=== PATIENT | male | born 1955 | race Two or more races ===

== ENCOUNTER 2017-08-07 23:25 | Inpatient (IN) | payer MEDICAID, OTHER ==
[~2017-08-07] VITALS: Ht 182.9 cm; Wt 103.9 kg
--- NOTE | 2017-08-08 03:27 | NUR ---
Called to rm pt in restroom.
[2017-08-08] MEDS ORDERED: IV NS 0.9% 1,000 ML BAG IV ONE (05:30)
[2017-08-08] MEDS ORDERED: PIPERACILLIN /TAZOBACTAM 3.375 G in IV D5W 50 ML IV ONE (05:30)
[2017-08-08] MEDS ORDERED: VANCOMYCIN 1 GM in IV D5W 250 ML IV ONE (05:30)
--- NOTE | 2017-08-08 05:42 | NUR ---
62Y/O MALE PLACED IN BED 1 C/O LOWER EXTREMITY INJURY. PT SEEN BY . ORDERS WRITTEN
[2017-08-08 06:01] LABS: HEMATOCRIT 34 % (39-51); HEMOGLOBIN 11.9 g/dL (13.5-17.5); LYMPHOCYTES # (AUTO) 0.8 /CMM (0.8-4.8); LYMPHOCYTES % (AUTO) 1.6 % (20.0-44.0); MEAN CORPUSCULAR HEMOGLOBIN 31 PG (26.0-33.0); MEAN CORPUSCULAR HGB CONC 35 g/dl (31.0-36.0); MEAN CORPUSCULAR VOLUME 89 fL (80-96); MONOCYTES # (AUTO) 0.1 /CMM (0.1-1.30); MONOCYTES % (AUTO) 0.2 % (2.0-12.0); NEUTROPHILS # (AUTO) 46.2 /CMM (1.8-8.9); NEUTROPHILS % (AUTO) 98.2 % (43.0-81.0); PLATELET COUNT (AUTO) 544 /CMM (150-450); RDW COEFFICIENT OF VARIATION 12.8 (11.5-15.0); RED BLOOD CELL COUNT(AUTO) 3.86 MIL/uL (4.5-6.0)
[2017-08-08 06:15] LABS: INR 0.94 (0.87-1.13)
[2017-08-08] MEDS ORDERED: PIPERACILLIN /TAZOBACTAM 3.375 G VIAL IV ONE (06:18)
[2017-08-08 06:25] LABS: TROPONIN I < 0.017 ng/mL (0.00-0.056)
[2017-08-08 06:32] LABS: ALANINE AMINOTRANSFERASE 38 U/L (12-78); ALBUMIN 2.4 g/dL (3.4-5.0); ALKALINE PHOSPHATASE 104 U/L (46-116); ASPARTATE AMINOTRANSFERASE 40 U/L (15-37); B-TYPE NATRIURETIC PEPTIDE 2901 PG/ML (0-125); BILIRUBIN,DIRECT 0.2 mg/dL (0.0-0.2); BILIRUBIN,TOTAL 0.5 mg/dL (0.2-1.0); CALCIUM, SERUM 8.2 mg/dL (8.5-10.1); CARBON DIOXIDE 18 mmol/L (21-32); CHLORIDE 87 mmol/L (98-107); CREATININE 3.9 mg/dL (0.6-1.3); GLUCOSE 130 mg/dL (74-106); POTASSIUM 4.8 mmol/L (3.5-5.1); TOTAL PROTEIN, SERUM 7.4 g/dL (6.4-8.2)
--- NOTE | 2017-08-08 06:32 | NUR ---
PT SEEN BY . Harshil/Tiera PLACED AND IVF STARTED WITH PIGGY BACK OF ZOSYN. PT HAS VERY BAD VEINS. IV BLEW AND NEEDED TO BE REMOVED. RECOMMEND PICC LINE.
[2017-08-08 06:34] LABS: SODIUM SERUM 119 mmol/L (136-145)
[2017-08-08 06:35] LABS: UREA NITROGEN, BLOOD 88 mg/dL (7-18)
[2017-08-08 06:39] LABS: BAND % (MANUAL) 11 % (0.0-5.0); LYMPHOCYTES % (MANUAL) 3 % (16-48); MONOCYTES % (MANUAL) 1 % (0-11.0); NEUTROPHILS % (MANUAL) 85 (42-76)
--- NOTE | 2017-08-08 06:45 | NUR ---
DR. HERNANDEZ EVALUATED PT. REQUESTING PICC LINE PLACEMENT THIS AM. SHE ALSO REQUESTING WOUNDS TO BE CLEANED AND DRESSED. SPLINT BEHIND THE DRESSING OF THE LEFT LEG. PAIN MEDICATION WILL BE ORDERED FOR THE CLEANING OF THE WOUNDS.
[2017-08-08] MEDS ORDERED: KETOROLAC TROMETHAMINE INJ 60 MG/2 ML VIAL IM ONE (07:00)
[2017-08-08 08:00] VITALS: BP 142/81
[2017-08-08] MEDS ORDERED: KETOROLAC TROMETHAMINE INJ 30 MG/ML VIAL ONE (08:02)
[2017-08-08] MEDS ORDERED: AMLO5TAB2 PO (08:05)
[2017-08-08] MEDS ORDERED: CLON0.1T PO (08:05)
--- NOTE | 2017-08-08 08:38 | NUR ---
report given to onel méndez for josé
--- NOTE | 2017-08-08 08:41 | NUR ---
*picc line will be done inpatient and IV medication endorsed to telephone worker
[2017-08-08] MEDS ORDERED: IV NS 0.9% 1,000 ML IV PRN (08:46)
[2017-08-08 09:00] VITALS: BP 142/81
[2017-08-08] MEDS ORDERED: HYDROCODONE/APAP 5/325MG 1 EACH TABLET PO PRN (09:00)
[2017-08-08] MEDS ORDERED: ACETAMINOPHEN 325 MG TABLET PO PRN (09:00)
[2017-08-08] MEDS ORDERED: MAGNESIUM HYDROXIDE 30 ML UDC PO PRN (09:00)
[2017-08-08] MEDS ORDERED: Z GUARD REMEDY 2 OZ OINT TP PRN (09:00)
--- NOTE | 2017-08-08 09:00 | NUR ---
RECEIVED PATIENT FROM ER VIA [facility]. PATIENT A/OX3. DIAGNOSIS OF LLE WOUND/CELLULITIS. NO CUTE DISTRESS, NO SOB NOTED. DENIES PAIN OR DISCOMFORT. NO IV. MULTIPLE WOUNDS NOTED, PHOTOS TAKEN. ALL BELONGINGS PRESENT, CELLPHONE NOTED TO BE BROKEN PER PATIENT, CHECKLIST DONE. KEPT PATIENT CLEAN AND COMFORTABLE. BED IN LOCKED/LOW POSITION, SIDERAILS UPX2, CALL LIGHT IN REACH. WILL CONTINUE TO MONITOR ACCORDINGLY.
--- NOTE | 2017-08-08 09:05 | NUR ---
COSME NOTES PICC LINE INSERTED BY ICU NURSE. IV FLUIDS AND ANTIBIOTICS RUNNING. Addendum: 08/08/17 at 1129 by KAREL JENNINGS ANTIBIOTICS INFUSING.. Addendum: 08/08/17 at 1658 by KAREL JENNINGS CORRECTION: NOT PICC LINE.. MIDLINE WAS INSERTED ON MAHAMED # 20.
--- NOTE | 2017-08-08 09:10 | NUR ---
RN NOTES DR QUINONES ON BEDSIDE, WILL DO WOUND DEBRIDEMENT TOMORROW. PER DR QUINONES, PATIENT NPO AFTER MIDNIGHT.
[2017-08-08] MEDS ORDERED: FEE PK DOSING 1 MIN EA MC ONE (09:23)
--- NOTE | 2017-08-08 13:57 | NUR ---
Social service consult requested by DUSTIN Decker regarding homelessness. Pt. is a 62 year old male who was admitted to [facility] for cellulitis. Pt. is wheelchair bound. SW attempted to assess pt., however, pt. was asleep and had a difficult time waking up. SW to re-evaluate pt. tomorrow when pt. is more awake.
[2017-08-08 14:00] LABS: CALCIUM, SERUM 7.5 mg/dL (8.5-10.1); CREATININE 4.1 mg/dL (0.6-1.3); POTASSIUM 4.4 mmol/L (3.5-5.1)
[2017-08-08] MEDS ORDERED: DAKINS HALF STRENGTH (0.25%) 480 ML BOTTLE TOP SCH (14:00)
[2017-08-08] MEDS: PIPERACILLIN /TAZOBACTAM 3.375 G in IV D5W 50 ML IV SCH ×2 (14:04→17:38)
[2017-08-08 14:42] LABS: MAGNESIUM 1.8 mg/dL (1.8-2.4); PHOSPHORUS 4.2 mg/dL (2.5-4.9)
[2017-08-08 14:58] LABS: THYROID STIMULATING HORMONE 3.812 uIU/mL (0.358-3.74)
[2017-08-08 16:00] VITALS: BP 110/79
--- NOTE | 2017-08-08 17:30 | NUR ---
RN NOTES URINE COLLECTED
[2017-08-08] MEDS: DAKINS QUARTER STRENGTH (0.125%) 480 ML BOTTLE TOP SCH (17:39)
[2017-08-08] MEDS: IV NS 0.9% 1,000 ML IV PRN ×2 (17:40→20:41)
[2017-08-08 17:45] LABS: APPEARANCE,URINE CLEAR (CLEAR); BILIRUBIN,URINE NEGATIVE (NEGATIVE); BLOOD, URINE 3+ Ery/uL (NEGATIVE); COLOR,URINE DARK YELLO (YELLOW); KETONES,URINE NEGATIVE (NEGATIVE); LEUKOCYTE ESTERASE ,URINE NEGATIVE (NEGATIVE); NITRITE, URINE NEGATIVE (NEGATIVE); PH,URINE 5.5 (5.0-8.0); PROTEIN,URINE TRACE mg/dl (NEGATIVE); UGLUCOSE NEGATIVE (NEGATIVE); UROBILINOGEN,URINE 0.2 EU/dL (0.2)
[2017-08-08 17:48] LABS: BACTERIA,URINE Few /HPF (None Seen); RBC,URINE 21-50 /HPF (0-2); SQUAMOUS EPITHELIAL CELL,UR Few /HPF (None Seen)
[2017-08-08 17:55] LABS: URINE SODIUM, RANDOM 6 mmol/l (40-220)
[2017-08-08 18:36] LABS: OSMOLALITY,URINE 309 mOS/kg (340-1090)
[2017-08-08] MEDS: HYDROCODONE/APAP 10/325MG 1 EA TABLET PO PRN ×2 (19:02→21:16)
--- NOTE | 2017-08-08 19:33 | NUR ---
RN CLOSING NOTES PATIENT IN BED RESTING. NO ACUTE DISTRESS, NO SOB NOTED. ALL NEEDS ATTENDED AND PROVIDED. KEPT PATIENT SAFE AND COMFORTABLE IN BED. PATIENT SLEPT MOST OF THE DAY, PER PATIENT HE HASNT SLEEP FOR 4 DAYS. BED IN LOW/LOCKED POSITION, SIDERAILS UPX2. CALL LIGHT IN REACH. ENDORSED TO NIGHT RN FOR JERONIMO.
[2017-08-08 20:00] VITALS: BP 140/71
--- NOTE | 2017-08-08 20:23 | NUR ---
MS RN OPENING NOTES RECEIVED PT ALERT, AWAKE, VERBALLY RESPONSIVE. ON ROOM AIR, DENIES ANY PAIN OR DISCOMFORT AT THIS TIME. IV SITE INTACT, PATENT.KEPT CLEAN AND COMFPRTABLE. ATTENDED ALL NEEDS.
[2017-08-08] MEDS ORDERED: CLINDAMYCIN IV RTU IN D5W 900 MG/50 ML PIGGYBACK IV SCH (20:30)
--- NOTE | 2017-08-08 20:30 | NUR ---
MS RN NOTES RECEIVED CALL FROM LAB WITH RESULTS OF THE BLOOD CULTURE GRAM POSITIVE COCCI IN CHAINS IN AEROBIC BOTTLE. DR LECHUGA NOTIFIED WITH NO NEW ORDER RECEIVED AT THIS TIME. PT CURRENTLY ON MEREM, CLINDAMYCIN AND VANCOMYCIN. AFEBRILE. NO S/SX OF PAIN OR DISCOMFORT NOTED. WILL CONTINUE TO MONITOR.
[2017-08-08] MEDS: CLINDAMYCIN 900 MG in IV NS 0.9% 50 ML IV SCH (21:19)
[2017-08-08 22:00] VITALS: BP 140/71
[2017-08-08] MEDS: MEROPENEM 500 MG in IV NS 0.9% 50 ML IV SCH (22:04)
[2017-08-09] VITALS: BP 126/62
[2017-08-09 04:00] VITALS: BP 133/79
[2017-08-09] MEDS: CLINDAMYCIN 900 MG in IV NS 0.9% 50 ML IV SCH ×3 (06:01→20:06)
[2017-08-09] MEDS: IV NS 0.9% 1,000 ML IV PRN ×3 (06:02→21:41)
[2017-08-09] MEDS: ONDANSETRON HCL/PF 4 MG/2 ML VIAL IVP PRN ×2 (06:21→14:50)
[2017-08-09] MEDS: HYDROCODONE/APAP 10/325MG 1 EA TABLET PO PRN ×2 (06:21→14:51)
--- NOTE | 2017-08-09 07:00 | NUR ---
REVIVAL CLERK CLOSING NOTES PT IN BED, AWAKE, RESPONSIVE, ON ROOM AIR, RESPIRATIONS EVEN, UNLABORED. COMPLAINED OF NAUSEA ZOFRAN 4MG GIVEN ORDERED PRN.IV SITE INTACT, PATENT. KEPT CLEAN AND COMFORTABLE ATTENDED ALL NEEDS, CALL LIGHT WITHIN REACH. WILL CONTINUE TO MONITOR ACCORDINGLY.
--- NOTE | 2017-08-09 07:30 | NUR ---
FILM SOUND COORDINATOR NOTES PT IN BED, ASLEEP, EASY TO AROUSE, ALERT AND ORIENTED, STILL WITH COMPLAINT OF PAIN TO LLE, NOT IN DISTRESS, NO NAUSEA OR VOMITING NOTED, PLAN OF CARE DISCUSSED WITH PT, PT STATED THAT HE DOES NOT WANT TO HAVE THE WOUND DEBRIDEMENT TODAY BECAUSE HE IS NOT FEELING WELL, EXPLAINED RISKS AND BENEFITS, IV FLUIDS INFUSING WELL, CALL LIGHT WITHIN REACH.
[2017-08-09 08:00] VITALS: BP 122/76
[2017-08-09 08:29] LABS: EOSINOPHILS % (AUTO) 0.1 % (0.0-6.0); HEMATOCRIT 33 % (39-51); LYMPHOCYTES # (AUTO) 0.7 /CMM (0.8-4.8); LYMPHOCYTES % (AUTO) 1.9 % (20.0-44.0); MEAN CORPUSCULAR HEMOGLOBIN 30 PG (26.0-33.0); MEAN CORPUSCULAR HGB CONC 33 g/dl (31.0-36.0); MEAN CORPUSCULAR VOLUME 90 fL (80-96); MONOCYTES # (AUTO) 0.1 /CMM (0.1-1.30); MONOCYTES % (AUTO) 0.3 % (2.0-12.0); NEUTROPHILS # (AUTO) 38.7 /CMM (1.8-8.9); NEUTROPHILS % (AUTO) 97.7 % (43.0-81.0); PLATELET COUNT (AUTO) 441 /CMM (150-450); RDW COEFFICIENT OF VARIATION 13.3 (11.5-15.0)
[2017-08-09 08:33] LABS: WHITE BLOOD COUNT (AUTO) 39.7 K/uL (4.3-11.0)
[2017-08-09 08:53] LABS: ALBUMIN 1.7 g/dL (3.4-5.0); BILIRUBIN,TOTAL 0.3 mg/dL (0.2-1.0); CALCIUM, SERUM 7.4 mg/dL (8.5-10.1); CREATININE 3.3 mg/dL (0.6-1.3); MAGNESIUM 1.9 mg/dL (1.8-2.4); PHOSPHORUS 4.6 mg/dL (2.5-4.9); POTASSIUM 4.1 mmol/L (3.5-5.1); TOTAL PROTEIN, SERUM 6.1 g/dL (6.4-8.2)
[2017-08-09 08:57] LABS: THYROID STIMULATING HORMONE 3.225 uIU/mL (0.358-3.74)
[2017-08-09] MEDS: VANCOMYCIN 1 GM in IV D5W 250 ML IV SCH (09:02)
[2017-08-09] MEDS: DAKINS QUARTER STRENGTH (0.125%) 480 ML BOTTLE TOP SCH (09:03)
[2017-08-09 10:20] LABS: BAND % (MANUAL) 6 % (0.0-5.0); LYMPHOCYTES % (MANUAL) 3 % (16-48); MONOCYTES % (MANUAL) 4 % (0-11.0); NEUTROPHILS % (MANUAL) 87 (42-76)
--- NOTE | 2017-08-09 10:35 | NUR ---
CONTINUOUS IMPROVEMENT COACH NOTES PT REFUSING WOUND DEBRIDEMENT TODAY, SAID HE IS NOT FEELING WELL, DR. ZEENAT WAYNE, MD WILL SEE PT TODAY.
[2017-08-09] MEDS: SODIUM CHLORIDE 1000 MG TABLET.SOL PO SCH ×2 (10:48→16:20)
[2017-08-09] MEDS: MEROPENEM 500 MG in IV NS 0.9% 50 ML IV SCH ×2 (10:48→21:20)
--- NOTE | 2017-08-09 13:05 | NUR ---
RN MS NOTES PT IN BED, NO COMPLAINT AT THIS TIME, BREATHING PATTERN NORMAL, IV FLUIDS INFUSING WELL, DR. QUINONES MET WITH PT, DISCUSSED PLAN OF CARE, TOLERATING CURRENT DIET WELL, KEPT CLEAN, CALL LIGHT WITHIN REACH.
--- NOTE | 2017-08-09 14:00 | NUR ---
EMILIA and disease case manager Johnny met with pt. bedside. Pt. is alert and oriented x 3. Pt. appeared disheveled and had dirt under his finger nails. Pt. stated that he has been homeless for the past two months, ever since his hospitalization at [facility]. Pt. had been living on a friend's couch in [place]. Pt. is non-ambulatory and has a wheelchair. However, pt. is unable to move his wheelchair independently due to blisters on his finger tips. Pt. has history of drug use but states he does not use drugs anymore. However, pt's toxicology report shows positive for amphetamines and opiates. Pt. stated, he use to smoke marijuana but stopped smoking that as well. Pt. denies drinking alcohol. Pt. is not suitable for fci placement at this time. manager pe is aware and will follow up with discharge plan. No other social service needs are required at this time. SW is available, if needed.
[2017-08-09 16:00] VITALS: BP 154/93
[2017-08-09] MEDS: LACTOBACILLUS RHAMNOSUS GG 1 EACH CAP.SPRINK PO SCH (16:20)
[2017-08-09] MEDS: PANTOPRAZOLE 40 MG TABLET.DR PO SCH (16:20)
[2017-08-09] MEDS: MENTHOL/CETYLPYRD (CEPACOL) 1 LOZ LOZENGE PO PRN (17:08)
--- NOTE | 2017-08-09 18:38 | NUR ---
ENVIRONMENTAL SAMPLING TECHNICIAN NOTES PT IN BED, ASLEEP, EASY TO AROUSE, NO COMPLAINT OF PAIN AT THIS TIME, RESPIRATIONS NORMAL AND NOT LABORED, IV FLUIDS INFUSING WELL, TREATMENT AND DRESSING CHANGE DONE TO LEFT LOWER LEG, PM CARE RENDERED, PM MEDS GIVEN, ALL NEEDS ATTENDED.
--- NOTE | 2017-08-09 19:30 | NUR ---
RN NOTES RECEIVED PATIENT IN BED AWAKE, AO X 3, ABLE TO MAKE NEEDS KNOWN. NO ACUTE DISTRESS NOTED. DENIES ANY PAIN AT THIS TIME. TELE READING SINUS TACH HR 103. MAHAMED MIDLINE PATENT, INTACT; IVF INFUSING ORDERED. LLE DRESSING INTACT. SAFETY REMINDERS GIVEN. ON LOW BED WITH BILATERAL UPPER SIDE RAILS UP. CALL KELLY WITHIN EASY REACH. WILL CONTINUE TO MONITOR.
[2017-08-09 20:00] VITALS: BP 155/69
--- NOTE | 2017-08-09 23:21 | NUR ---
RN NOTES GAVE REPORT TO ODETTE AGUIAR FOR CONTINUITY OF CARE.
--- NOTE | 2017-08-09 23:25 | NUR ---
RN NOTES RECEIVED PATIENT IN BED AWAKE, AO X 3, VERBALLY RESPONSIVE. NO ACUTE DISTRESS NOR SOB NOTED AT THIS TIME. DENIES ANY PAIN AT THIS TIME. TELE READING SINUS TACH HR 101. MAHAMED MIDLINE PATENT, INTACT, IVF INFUSING ORDERED. LLE DRESSING INTACT. SAFETY PRECAUTIONS OBSERVED. BED ON LOCK AND LOWEST LEVEL, SR UP X2. CALL LIGHT WITHIN EASY REACH. ALL NEEDS ATTENDED AND MET. WILL CONTINUE TO MONITOR.
[2017-08-10] VITALS: BP 148/72
[2017-08-10] MEDS: MAG HYDROX/AL HYDROX/SIMETH 30 ML UDC PO PRN ×2 (00:20→06:28)
[2017-08-10] MEDS: MENTHOL/CETYLPYRD (CEPACOL) 1 LOZ LOZENGE PO PRN ×2 (00:27→04:43)
[2017-08-10 04:00] VITALS: BP 138/70
[2017-08-10] MEDS: CLINDAMYCIN 900 MG in IV NS 0.9% 50 ML IV SCH ×3 (04:34→20:55)
[2017-08-10] MEDS: IV NS 0.9% 1,000 ML IV PRN ×3 (04:35→22:32)
--- NOTE | 2017-08-10 06:30 | NUR ---
RN NOTES PATIENT IN BED AWAKE, AO X 3, VERBALLY RESPONSIVE. NO ACUTE DISTRESS NOR SOB NOTED AT THIS TIME. DENIES ANY PAIN AT THIS TIME. TELE READING SINUS TACH HR 104. MAHAMED MIDLINE PATENT, INTACT, IVF INFUSING ORDERED. LLE DRESSING INTACT. SAFETY PRECAUTIONS OBSERVED. BED ON LOCK AND LOWEST LEVEL, SR UP X2. CALL LIGHT WITHIN EASY REACH. ALL NEEDS ATTENDED AND MET. WILL ENDORSE TO NEXT SHIFT FOR JERONIMO. .
[2017-08-10 08:00] VITALS: BP_SYST 122; BP_SYST 91; BP_DIAS 65; BP_DIAS 72
--- NOTE | 2017-08-10 08:00 | NUR ---
rn notes RECEIVED PATIENT IN THE BED, A/O X4, ENCOURAGED TO EXPRESS FEELINGS AND CONCERNS, PATIENT D/C FOR TELE, NO ACUTE RESPIRATORY DISTRESS, V/S TAKEN STABLE, SCHEDULED MEDICATION ADMINISTERED PRESCRIBED, PATIENT HAS A MULTIPLE WOUNDS, AND MULTIPLE SCABS. NEEDS ATTENDED AND ANTICIPATED, PATIENT REFUSED APIN AT THIS TIME, PATIENT USING URINAL, ASSIST TURN AND REPOSITION Q 2 HR, IV MIDLINE ON RIGHT UPPER ARM INTACT NS 200 ML/HR, CALL LIGHT WITHIN TO REACH, CONTINUED MONITORING.
[2017-08-10 08:41] LABS: BASOPHILS % (AUTO) 0.1 % (0.0-2.0); EOSINOPHILS # (AUTO) 0.1 /CMM (0.0-0.7); EOSINOPHILS % (AUTO) 0.3 % (0.0-6.0); HEMATOCRIT 28 % (39-51); HEMOGLOBIN 9.7 g/dL (13.5-17.5); LYMPHOCYTES # (AUTO) 0.9 /CMM (0.8-4.8); LYMPHOCYTES % (AUTO) 2.7 % (20.0-44.0); MEAN CORPUSCULAR HEMOGLOBIN 31 PG (26.0-33.0); MEAN CORPUSCULAR HGB CONC 35 g/dl (31.0-36.0); MEAN CORPUSCULAR VOLUME 87 fL (80-96); MONOCYTES # (AUTO) 1.6 /CMM (0.1-1.30); MONOCYTES % (AUTO) 5.1 % (2.0-12.0); NEUTROPHILS # (AUTO) 29.6 /CMM (1.8-8.9); NEUTROPHILS % (AUTO) 91.8 % (43.0-81.0); PLATELET COUNT (AUTO) 441 /CMM (150-450); RDW COEFFICIENT OF VARIATION 12.7 (11.5-15.0); RED BLOOD CELL COUNT(AUTO) 3.17 MIL/uL (4.5-6.0)
[2017-08-10 08:51] LABS: WHITE BLOOD COUNT (AUTO) 32.2 K/uL (4.3-11.0)
[2017-08-10] MEDS: LACTOBACILLUS RHAMNOSUS GG 1 EACH CAP.SPRINK PO SCH ×2 (08:57→16:12)
[2017-08-10] MEDS: SODIUM CHLORIDE 1000 MG TABLET.SOL PO SCH ×2 (08:57→16:12)
[2017-08-10] MEDS: PANTOPRAZOLE 40 MG TABLET.DR PO SCH (08:57)
[2017-08-10] MEDS: MEROPENEM 500 MG in IV NS 0.9% 50 ML IV SCH (08:57)
[2017-08-10 08:59] LABS: CREATININE 1.9 mg/dL (0.6-1.3); POTASSIUM 3.4 mmol/L (3.5-5.1)
[2017-08-10] MEDS: DAKINS QUARTER STRENGTH (0.125%) 480 ML BOTTLE TOP SCH ×2 (08:59→18:21)
[2017-08-10] MEDS: VANCOMYCIN 1 GM in IV D5W 250 ML IV SCH (09:35)
[2017-08-10 09:40] LABS: BAND % (MANUAL) 2 % (0.0-5.0); LYMPHOCYTES % (MANUAL) 3 % (16-48); MONOCYTES % (MANUAL) 5 % (0-11.0); NEUTROPHILS % (MANUAL) 90 (42-76)
[2017-08-10] MEDS: POTASSIUM CHLORIDE 20 MEQ TAB.PRT.SR PO SCH ×2 (11:06→11:08)
[2017-08-10] MEDS: HYDROCODONE/APAP 10/325MG 1 EA TABLET PO PRN ×2 (11:08→17:56)
--- NOTE | 2017-08-10 11:08 | NUR ---
RN NOTES ADMINISTERED NARCO 10/325 MG PO PRN FOR LEFT LOWER LEG 01/09 PER PATIENT REQUEST, V/S TAKEN BP 142/61, P-100, ENCOURAGED TO INCREASE FLUID INTAKE, ALSO CHANGED DRESSING ON LEFT LOWER LEG, CALL LIGHT WITHIN TO REACH, CONTINUED MONITORING.
--- NOTE | 2017-08-10 11:16 | NUR ---
WOUND CONSULT WOUND CARE RECEIVED WOUND CONSULT FOR MULTIPLE WOUNDS. WOUND CARE WILL DEFER TO SURGICAL TEAM FOR ALL WOUNDS INCLUDING CONSULT AND TREATMENT PLANS. PATIENT WITH TAMMIE AT 13, ALL PRESSURE ULCER PREVENTION MEASURES NOTED TO BE IN PLACE AT THIS TIME.
--- NOTE | 2017-08-10 11:35 | NUR ---
RN NOTES MEDICATION WERE ADMINISTERED FOR PAIN EFFECTIVE, ASSIST TURN AND REPOSITION Q 2 HR, CALL LIGHT WITHIN TO REACH, CONTINUED MONITORING.
[2017-08-10 15:25] VITALS: BP 145/72
[2017-08-10] MEDS: SOD FERRIC GLUC 125 MG in IV NS 0.9% 100 ML IV SCH (16:09)
--- NOTE | 2017-08-10 17:56 | NUR ---
RN NOTES ADMINISTERED NARCO 10/325 MG PO PRN FOR LOWER LEG PAIN 02/09 PER PATIENT REQUEST, V/S TAKEN BP- 145/72, P-101, ENCOURAGED TO INCREASE FLUID INTAKE, CALL LIGHT WITHIN TO REACH, ALSO CHANGED DRESSING PRESCRIBED, CONTINUED MONITORING.
--- NOTE | 2017-08-10 18:50 | NUR ---
RN NOTES MEDICATION WERE ADMINISTERED FOR PAIN EFFECTIVE, V/S STABLE, NEEDS ATTENDED AND ANTICIPATED, CALL LIGHT WITHIN TO REACH, PATIENT TURN AND REPOSITION Q 2 HR, CALL LIGHT WITHIN TO REACH, IV MIDLINE ON RIGHT UPPER ARM 125 ML/HR. PATIENT STABLE, MED COMPLIANT. ENDORSED ONCOMING NURSE FOR JERONIMO.
--- NOTE | 2017-08-10 19:30 | NUR ---
RN NOTES RECEIVED PATIENT IN BED AWAKE, AO X 3, ABLE TO MAKE NEEDS KNOWN. NO ACUTE DISTRESS NOTED. DENIES ANY PAIN AT THIS TIME. MAHAMED MIDLINE PATENT, INTACT; IVF INFUSING ORDERED. LLE DRESSING INTACT. SAFETY REMINDERS GIVEN. ON LOW BED WITH BILATERAL UPPER SIDE RAILS UP. CALL KELLY WITHIN EASY REACH. WILL CONTINUE TO MONITOR.
[2017-08-10 20:00] VITALS: BP 154/80
[2017-08-11] MEDS: CLINDAMYCIN 900 MG in IV NS 0.9% 50 ML IV SCH ×3 (05:10→20:22)
[2017-08-11] MEDS: IV NS 0.9% 1,000 ML IV PRN ×2 (05:48→17:21)
--- NOTE | 2017-08-11 06:11 | NUR ---
RN NOTES PATIENT ASLEEP, EASILY AROUSABLE. RESPIRATIONS EVEN. NO SIGNS OF PAIN NOTED. DUE MEDS GIVEN WITH NO ASE NOTED. NEEDS ATTENDED. KEPT CLEAN AND DRY. SAFETY PRECAUTIONS AND COMFORT MEASURES IN PLACE. WILL GIVE REPORT TO DAY SHIFT FOR CONTINUITY OF CARE.
[2017-08-11 06:30] LABS: CALCIUM, SERUM 6.9 mg/dL (8.5-10.1); CREATININE 1.3 mg/dL (0.6-1.3); POTASSIUM 4.2 mmol/L (3.5-5.1)
[2017-08-11] MEDS: PANTOPRAZOLE 40 MG TABLET.DR PO SCH (07:46)
--- NOTE | 2017-08-11 07:49 | NUR ---
MSRN OPENING NOTES. PT RECEIVED A&0X3 RESTING IN BED. PT TOLERATING ROOM AIR AND DENIES SOB. PT REPORTING GENERALIZED PAIN 3/10 BUT DECLINES ANALGESIA. PT WITH R UA MIDLINE INTACT AND OPERATIONAL WITH PRESCRIBED FLUIDS. PT BED IN LOWEST LOCKED POSITION WITH HANDRAILX3 AND CALL KELLY WITHIN REACH. PT BRIEFED ON TODAY'S POC AND IS WITHOUT CONCERN OR COMPLAINT AT THIS TIME.
[2017-08-11 08:00] VITALS: BP 121/61
[2017-08-11] MEDS ORDERED: VANCOMYCIN 1.25 GM in IV D5W 500 ML IV SCH (09:00)
[2017-08-11] MEDS: LACTOBACILLUS RHAMNOSUS GG 1 EACH CAP.SPRINK PO SCH ×2 (09:02→17:17)
[2017-08-11] MEDS: SODIUM CHLORIDE 1000 MG TABLET.SOL PO SCH ×2 (09:02→17:17)
[2017-08-11] MEDS: DAKINS QUARTER STRENGTH (0.125%) 480 ML BOTTLE TOP SCH ×2 (09:04)
[2017-08-11 09:19] LABS: BASOPHILS # (AUTO) 0.1 /CMM (0.0-0.2); BASOPHILS % (AUTO) 0.5 % (0.0-2.0); EOSINOPHILS # (AUTO) 0.1 /CMM (0.0-0.7); EOSINOPHILS % (AUTO) 0.4 % (0.0-6.0); HEMATOCRIT 28 % (39-51); LYMPHOCYTES # (AUTO) 1.8 /CMM (0.8-4.8); LYMPHOCYTES % (AUTO) 6.4 % (20.0-44.0); MEAN CORPUSCULAR HEMOGLOBIN 29 PG (26.0-33.0); MEAN CORPUSCULAR HGB CONC 33 g/dl (31.0-36.0); MEAN CORPUSCULAR VOLUME 90 fL (80-96); MONOCYTES # (AUTO) 2.1 /CMM (0.1-1.30); MONOCYTES % (AUTO) 7.6 % (2.0-12.0); NEUTROPHILS # (AUTO) 23.5 /CMM (1.8-8.9); NEUTROPHILS % (AUTO) 85.1 % (43.0-81.0); PLATELET COUNT (AUTO) 421 /CMM (150-450); RDW COEFFICIENT OF VARIATION 13.9 (11.5-15.0); RED BLOOD CELL COUNT(AUTO) 3.08 MIL/uL (4.5-6.0); WHITE BLOOD COUNT (AUTO) 27.6 K/uL (4.3-11.0)
[2017-08-11 09:57] LABS: BAND % (MANUAL) 2 % (0.0-5.0); LYMPHOCYTES % (MANUAL) 5 % (16-48); MONOCYTES % (MANUAL) 10 % (0-11.0); NEUTROPHILS % (MANUAL) 83 (42-76)
[2017-08-11 10:00] VITALS: BP 121/61
--- NOTE | 2017-08-11 11:00 | NUR ---
MSRN - PT'S UPPER L EXTREMITY WOUND CARE INSTRUCTIONS NOT AVAILABLE. PT REFUSING UPPER L EXTREMITY DRESSING CHANGE. OTHER WOUND CARE COMPLETED PER ORDER.
[2017-08-11] MEDS: HYDROCODONE/APAP 10/325MG 1 EA TABLET PO PRN (13:25)
[2017-08-11] MEDS: SOD FERRIC GLUC 125 MG in IV NS 0.9% 100 ML IV SCH (14:44)
--- NOTE | 2017-08-11 15:00 | NUR ---
MSRN- PT NOT CONSENTING TO DEBRIDEMENT AT THIS TIME.
[2017-08-11 16:00] VITALS: BP 155/83
--- NOTE | 2017-08-11 18:28 | NUR ---
MSRN CLOSING NOTES. PT REMAINS A&0X3 AND TOLERATING ROOM AIR. PT DENIES PAIN AT THIS TIME. PT WITH R UA MIDLINE INTACT AND OPERATIONAL. WOUND CARE COMPLETED PER ORDER EXCEPT FOR L UPPER EXTREMITY. PT REFUSING UPPER L EXTREMITY CHANGE AT THIS TIME, WILL ENDOSE TO NIGHT NURSE, DUSTIN BRANNON CONTACTED PER CHARGE NURSE FOR WOUND CARE INSTRUCTIONS. ALL OTHER DAY NURSE DUTIES ATTENDED TO. PT BED IN LOWEST LOCKED POSITION WITH HANDRAILSX3 AND CALL KELLY WITHIN REACH. PT WITHOUT CONCERN OR COMPLAINT AT THIS TIME.
--- NOTE | 2017-08-11 18:52 | NUR ---
RIno MORRELL REQUESTING L UPPER EXTREMITY WOUND CARE BE COMPLETED/COPIED IT CURRENTLY IS. WILL ENDORSE TO NIGHT NURSE.
--- NOTE | 2017-08-11 19:00 | NUR ---
RN OPENING NOTES PT RESTING IN BED. NO COMPLAINTS OF PAIN, SOB, OR DISTRESS AT THIS TIME. PT HAS LLE WOUND DRESSING AND CARE ADDRESSED BY JULIO DAY SHIFT NURSE. WILL ADDRESS L GROIN GRAFT AREA THIS EVENING. PT HAS MAHAMED MIDLINE RUNNING NS @125 ML/HR, PT TOLERATING WELL. SAFETY PRECAUTIONS IN PLACE. BED IN LOW LOCKED POSITION, X2 SIDE RAILS UP, CALL LIGHT WITHIN REACH. WILL CONTINUE TO MONITOR.
[2017-08-11 20:00] VITALS: BP 150/80
--- NOTE | 2017-08-11 20:45 | NUR ---
RN NOTES CLEANSED UPPER LEFT GROIN GRAFT AREA WITH NS, PAT DRY, COVERED WITH NON-ADHERENT DRESSING, WRAPPED WITH KERLIX. MIRRORED PREVIOUS DRESSING.
--- NOTE | 2017-08-12 00:20 | NUR ---
SERGIO VERBALIZES GEN CHARO FAYE 1 TAB PO ADMINISTERED. Addendum: 08/13/17 at 0404 by VARINDER BURROWS RN DISREGARD ABOVE CHARTING WRONG DATE
[2017-08-12] MEDS: IV NS 0.9% 1,000 ML IV PRN ×2 (02:37→13:30)
[2017-08-12] MEDS: CLINDAMYCIN 900 MG in IV NS 0.9% 50 ML IV SCH ×3 (05:07→20:30)
--- NOTE | 2017-08-12 05:55 | NUR ---
RN NOTES PT REFUSED DRESSING CHANGE AFTER BM SOILED GAUZE. PT REQUESTED TO BE CHANGED BY DAY SHIFT NURSE.
--- NOTE | 2017-08-12 06:40 | NUR ---
RN CLOSING NOTES PT RESTING IN BED. NO SIGNIFICANT CHANGES OVERNIGHT. NO COMPLAINTS OF PAIN, SOB OR DISTRESS THROUGHOUT THE SHIFT. PT HAS A R UPPER ARM MIDLINE RUNNING NS @125 ML/HR, PT TOLERATING WELL. ALL PT NEEDS MET. SAFETY PRECAUTIONS IN PLACE. WILL ENDORSE TO DAY SHIFT NURSE FOR CONTINUITY OF CARE.
[2017-08-12 06:47] LABS: EOSINOPHILS # (AUTO) 0.2 /CMM (0.0-0.7); EOSINOPHILS % (AUTO) 0.6 % (0.0-6.0); HEMATOCRIT 29 % (39-51); LYMPHOCYTES # (AUTO) 1.7 /CMM (0.8-4.8); LYMPHOCYTES % (AUTO) 5.1 % (20.0-44.0); MEAN CORPUSCULAR HEMOGLOBIN 31 PG (26.0-33.0); MEAN CORPUSCULAR HGB CONC 34 g/dl (31.0-36.0); MEAN CORPUSCULAR VOLUME 89 fL (80-96); MONOCYTES # (AUTO) 2.9 /CMM (0.1-1.30); MONOCYTES % (AUTO) 8.8 % (2.0-12.0); NEUTROPHILS # (AUTO) 28.2 /CMM (1.8-8.9); NEUTROPHILS % (AUTO) 85.5 % (43.0-81.0); PLATELET COUNT (AUTO) 453 /CMM (150-450); RDW COEFFICIENT OF VARIATION 14.2 (11.5-15.0); RED BLOOD CELL COUNT(AUTO) 3.27 MIL/uL (4.5-6.0)
[2017-08-12 06:49] LABS: CALCIUM, SERUM 7.1 mg/dL (8.5-10.1); CREATININE 1.1 mg/dL (0.6-1.3); POTASSIUM 3.9 mmol/L (3.5-5.1)
--- NOTE | 2017-08-12 07:00 | NUR ---
RN NOTES LAB CALLED WBC LEVEL OF 33.0. WILL ENDORSE TO THE DAY SHIFT NURSE.
--- NOTE | 2017-08-12 07:30 | NUR ---
RECEIVED PT. ALERT AND ORIENTED X4,UNKEMPT,COOPERATIVE.VS STABLE.
[2017-08-12 08:14] VITALS: BP 116/81
[2017-08-12] MEDS: PANTOPRAZOLE 40 MG TABLET.DR PO SCH (08:25)
[2017-08-12] MEDS: HYDROCODONE/APAP 10/325MG 1 EA TABLET PO PRN ×3 (08:26→19:24)
--- NOTE | 2017-08-12 08:26 | NUR ---
MEDICATED FOR PAIN IN LT ARM AND LT. LEGWITH SPUR.
[2017-08-12 08:53] LABS: BAND % (MANUAL) 3 % (0.0-5.0); LYMPHOCYTES % (MANUAL) 9 % (16-48); MONOCYTES % (MANUAL) 20 % (0-11.0); NEUTROPHILS % (MANUAL) 68 (42-76)
[2017-08-12] MEDS: LACTOBACILLUS RHAMNOSUS GG 1 EACH CAP.SPRINK PO SCH ×2 (08:58→17:23)
[2017-08-12] MEDS: SODIUM CHLORIDE 1000 MG TABLET.SOL PO SCH ×2 (08:58→17:23)
--- NOTE | 2017-08-12 14:00 | NUR ---
MS RN NOTES Received patient in bed alert, oriented.No acute distress noted , no sob noted, breathing unlabored. IV access patent and intact, No redness or swelling.Safety measures in place. Will continue to monitor accordingly.
[2017-08-12] MEDS: SOD FERRIC GLUC 125 MG in IV NS 0.9% 100 ML IV SCH (14:58)
[2017-08-12] MEDS: DAKINS QUARTER STRENGTH (0.125%) 480 ML BOTTLE TOP SCH (15:15)
--- NOTE | 2017-08-12 15:15 | NUR ---
MS RN NOTES LLE WOUND DRESSING CHANGED DONE. PATIENT TOLERATED WELL.
[2017-08-12 16:00] VITALS: BP 155/85
--- NOTE | 2017-08-12 18:30 | NUR ---
MS RN CLOSING NOTES Patient in bed alert, Oriented. No acute distress noted , no sob noted, breathing unlabored. IV access patent and intact, No redness or swelling.Safety measures in place. Needs attended. Due medication given, no ASE noted. Will continue to monitor accordingly.Will endorse to clinical trial data manager for continuity of care.
--- NOTE | 2017-08-12 19:35 | NUR ---
RN OPENING NOTES PATIENT IS IN BED, ALERT AND ORIENTED X4. PATIENT C/O GENERALIZED 01/09. NORCO 10-325 ADMINISTERED. RESPIRATIONS EVEN AND UNLABORED. NO SOB NOTED. IV ACCESS ON UPPER ARM MIDLINE PATENT AND INTACT. BED IN LOW AND LOCKED POSITION, SIDE RAILS X2. CALL LIGHT WITHIN EASY REACH. WILL CONTINUE TO MONITOR AND ASSESS DURING THE SHIFT.
[2017-08-12 20:00] VITALS: BP 140/76
--- NOTE | 2017-08-12 20:30 | NUR ---
MSRN FULLY AWAKE, LOWER BACK AND LEG PAIN TOLERABLE FOR NOW. TO CONTINUE.
--- NOTE | 2017-08-13 00:15 | NUR ---
MSRN VERBALIZES GEN PAIN, NORCO 1 TAB PO ADMINISTERED. WANTED A STRONGER PAIN MED, WILL CALL
[2017-08-13] MEDS: HYDROCODONE/APAP 10/325MG 1 EA TABLET PO PRN (00:25)
[2017-08-13] MEDS ORDERED: MORPHINE SULFATE INJ 2 MG/ML DISP.SYRIN IV PRN (01:30)
--- NOTE | 2017-08-13 04:06 | NUR ---
MSRN CHECKED PATIENT SLEEPING APPEARS COMFORTABLE.
[2017-08-13] MEDS: MORPHINE SULFATE INJ 4 MG/ML DISP.SYRIN IV PRN ×2 (05:52→09:58)
[2017-08-13] MEDS: CLINDAMYCIN 900 MG in IV NS 0.9% 50 ML IV SCH ×3 (05:52→21:08)
--- NOTE | 2017-08-13 06:02 | NUR ---
MSRN HAD TOTAL 2 BM. HAD TOTAL SPONGE BATH. VERBALIZES SEVERE LOWER BACK APIN, STATED GENERALIZED, MAINLY LOWER BACK. MORPHINE 2MG IVP ADMINISTERED. OTHE DUE MEDS GIVEN. KEPT COMFORTABLE.
[2017-08-13 07:22] LABS: BASOPHILS % (AUTO) 0.1 % (0.0-2.0); EOSINOPHILS # (AUTO) 0.3 /CMM (0.0-0.7); EOSINOPHILS % (AUTO) 0.9 % (0.0-6.0); HEMATOCRIT 28 % (39-51); HEMOGLOBIN 9.5 g/dL (13.5-17.5); LYMPHOCYTES % (AUTO) 5.6 % (20.0-44.0); MEAN CORPUSCULAR HEMOGLOBIN 31 PG (26.0-33.0); MEAN CORPUSCULAR HGB CONC 34 g/dl (31.0-36.0); MEAN CORPUSCULAR VOLUME 90 fL (80-96); MONOCYTES # (AUTO) 2.5 /CMM (0.1-1.30); NEUTROPHILS # (AUTO) 30.1 /CMM (1.8-8.9); NEUTROPHILS % (AUTO) 86.4 % (43.0-81.0); PLATELET COUNT (AUTO) 504 /CMM (150-450); RDW COEFFICIENT OF VARIATION 14.2 (11.5-15.0); RED BLOOD CELL COUNT(AUTO) 3.11 MIL/uL (4.5-6.0)
[2017-08-13 07:33] LABS: CREATININE 0.9 mg/dL (0.6-1.3); POTASSIUM 4.2 mmol/L (3.5-5.1)
--- NOTE | 2017-08-13 07:33 | NUR ---
MS/RN OPENING NOTE PATIENT IN BED IN STABLE CONDITION. A/O X 4. NO SIGNS OF ACUTE DISTRESS. NO COMPLAIN OF PAIN OR DISCOMFORT. ALL NEEDS ATTENDED TO. CALL LIGHT WITHIN REACH. WILL CONTINUE TO MONITOR TO ENSURE SAFETY.
[2017-08-13 07:39] LABS: WHITE BLOOD COUNT (AUTO) 34.8 K/uL (4.3-11.0)
--- NOTE | 2017-08-13 07:39 | NUR ---
MS/RN OPENING NOTE RELAYED CRITICAL LAB OF WBC TO SUZANNE CHAN WITH NO ORDERS AT THIS TIME.
[2017-08-13 08:00] VITALS: BP 135/74
[2017-08-13] MEDS: PANTOPRAZOLE 40 MG TABLET.DR PO SCH ×2 (08:48→16:08)
[2017-08-13] MEDS: DAKINS QUARTER STRENGTH (0.125%) 480 ML BOTTLE TOP SCH (08:48)
[2017-08-13] MEDS: LACTOBACILLUS RHAMNOSUS GG 1 EACH CAP.SPRINK PO SCH ×2 (08:49→16:08)
[2017-08-13] MEDS: SODIUM CHLORIDE 1000 MG TABLET.SOL PO SCH ×2 (08:49→16:08)
[2017-08-13] MEDS: SUCRALFATE 1 G TABLET PO SCH ×3 (12:05→21:08)
[2017-08-13] MEDS: HYDROMORPHONE INJ 0.5 MG/0.5 ML SYRINGE IV PRN ×5 (12:09→23:36)
[2017-08-13 12:26] LABS: BAND % (MANUAL) 5 % (0.0-5.0); LYMPHOCYTES % (MANUAL) 6 % (16-48); MONOCYTES % (MANUAL) 8 % (0-11.0); NEUTROPHILS % (MANUAL) 81 (42-76)
[2017-08-13] MEDS: SOD FERRIC GLUC 125 MG in IV NS 0.9% 100 ML IV SCH (14:01)
[2017-08-13 16:00] VITALS: BP 140/86
--- NOTE | 2017-08-13 16:37 | NUR ---
MS/RN LACTIC ACID SUZANNE MADE AWARE REGARDING PATIENT'S LACTIC ACID OF 2.0
[2017-08-13] MEDS: ONDANSETRON HCL/PF 4 MG/2 ML VIAL IVP PRN (17:10)
[2017-08-13] MEDS: IV NS 0.9% 1,000 ML IV PRN (17:45)
--- NOTE | 2017-08-13 17:47 | NUR ---
MS/RN SEEN BY DUSTIN AGUIAR PATIENT SEEN BY DUSTIN AGUIAR. LEFT LEG WOUND SEEN AND EXAMINED AND DRESSING CHANGE PERFORMED. PER STEFANIA EM PHYSICIAN CONTINUE TO MONITOR AND FOLLOW UP WITH PLASTIC.
--- NOTE | 2017-08-13 18:39 | NUR ---
MS/RN CLOSING NOTE PATIENT IN BED IN STABLE CONDITION. A/O X 3. NO SIGNS OF ACUTE DISTRESS. NO COMPLAIN OF PAIN OR DISCOMFORT. ALL NEEDS ATTENDED TO. CALL LIGHT WITHIN REACH. WILL ENDORSE TO NEXT SHIFT FOR CONTINUITY OF CARE.
--- NOTE | 2017-08-13 19:00 | NUR ---
RN OPENING NOTES PT RESTING IN BED. NO APPARENT S/S OF PAIN OR DISTRESS. PT HAS RIGHT UPPER ARM MIDLINE RUNNING NS @125 INTACT AND PATENT. SAFETY PRECAUTIONS IN PLACE WILL CONTINUE TO MONITOR.
[2017-08-13 20:00] VITALS: BP 147/95
--- NOTE | 2017-08-13 23:45 | NUR ---
RN NOTES PT REFUSED PICTURES OF WOUND PROGRESS. DOCUMENTED ALL AREAS PT WOULD ALLOW.
[2017-08-14] MEDS ORDERED: METRONIDAZOLE 500MG/ NS 100ML 100 ML IV ONE (00:58)
[2017-08-14] MEDS: METRONIDAZOLE 500MG/ NS 100ML 500 MG in PREMIX 1 EA IV SCH ×2 (01:09→05:00)
[2017-08-14] MEDS ORDERED: VANCOMYCIN HCL 125 MG/2.5 ML ORAL.SUSP ONE (01:09)
[2017-08-14] MEDS ORDERED: RIFAXIMIN 200 MG TABLET ONE (01:09)
[2017-08-14] MEDS: VANCOMYCIN HCL 125 MG/2.5 ML ORAL.SUSP PO SCH ×2 (01:22→06:00)
[2017-08-14] MEDS: RIFAXIMIN 200 MG TABLET PO SCH ×2 (01:22→10:41)
[2017-08-14] MEDS: HYDROMORPHONE INJ 0.5 MG/0.5 ML SYRINGE IV PRN ×5 (01:37→10:32)
[2017-08-14] MEDS: IV NS 0.9% 1,000 ML IV PRN (02:57)
--- NOTE | 2017-08-14 06:57 | NUR ---
RN CLOSING NOTES PT RESTING IN BED. PT COMPLAINED OF PAIN EVERY 2 HOURS. ADMINISTERED PRN DILAUDID .5MG. CONTINUALLY ASSESSED PT AND CONTINUED TO MONITOR. ALL NEEDS MET. WILL ENDORSE TO DAY SHIFT NURSE FOR CONTINUITY OF CARE.
--- NOTE | 2017-08-14 07:30 | NUR ---
PT RECEIVED RESTING COMFORTABLY IN BED WITH EYES CLOSED. NO S/S OR C/O PAIN OR DISTRESS NOTED. SIDE RAILS UP X2, CALL LIGHT LEFT WITHIN REACH. WILL CONTINUE PLAN OF CARE.
[2017-08-14 08:00] VITALS: BP 127/69
[2017-08-14] MEDS: SODIUM CHLORIDE 1000 MG TABLET.SOL PO SCH (08:13)
[2017-08-14] MEDS: SUCRALFATE 1 G TABLET PO SCH (08:13)
[2017-08-14] MEDS: PANTOPRAZOLE 40 MG TABLET.DR PO SCH (08:14)
[2017-08-14] MEDS: LACTOBACILLUS RHAMNOSUS GG 1 EACH CAP.SPRINK PO SCH (08:14)
[2017-08-14] MEDS: DAKINS QUARTER STRENGTH (0.125%) 480 ML BOTTLE TOP SCH (08:15)
[2017-08-14] MEDS ORDERED: DAPTOMYCIN 500 MG in IV NS 0.9% 50 ML IV SCH ×4 (09:00)
[2017-08-14] MEDS ORDERED: CEFTRIAXONE 1 G in IV NS 0.9% 50 ML IV SCH (10:00)
[2017-08-14] MEDS ORDERED: METRONIDAZOLE 500MG/ NS 100ML 500 MG in PREMIX 1 EA IV SCH (10:00)
[2017-08-14 10:11] LABS: BASOPHILS % (AUTO) 0.1 % (0.0-2.0); EOSINOPHILS # (AUTO) 0.1 /CMM (0.0-0.7); EOSINOPHILS % (AUTO) 0.4 % (0.0-6.0); HEMATOCRIT 26 % (39-51); HEMOGLOBIN 8.9 g/dL (13.5-17.5); LYMPHOCYTES # (AUTO) 1.5 /CMM (0.8-4.8); LYMPHOCYTES % (AUTO) 6.4 % (20.0-44.0); MEAN CORPUSCULAR HEMOGLOBIN 30 PG (26.0-33.0); MEAN CORPUSCULAR HGB CONC 34 g/dl (31.0-36.0); MEAN CORPUSCULAR VOLUME 89 fL (80-96); MONOCYTES # (AUTO) 1.1 /CMM (0.1-1.30); MONOCYTES % (AUTO) 4.9 % (2.0-12.0); NEUTROPHILS # (AUTO) 20.5 /CMM (1.8-8.9); NEUTROPHILS % (AUTO) 88.2 % (43.0-81.0); PLATELET COUNT (AUTO) 464 /CMM (150-450); RDW COEFFICIENT OF VARIATION 14.1 (11.5-15.0); RED BLOOD CELL COUNT(AUTO) 2.94 MIL/uL (4.5-6.0); WHITE BLOOD COUNT (AUTO) 23.3 K/uL (4.3-11.0)
[2017-08-14] MEDS ORDERED: FEE PK DOSING 1 MIN EA MC ONE (10:20)
[2017-08-14] MEDS ORDERED: VANCOMYCIN 1.25 GM in IV NS 0.9% 500 ML IV SCH (11:00)
--- NOTE | 2017-08-14 12:00 | NUR ---
AMA PT STATES HE WANTS TO LEAVE THE HOSPITAL AGAINST MEDICAL ADVICE (AMA). PATIENT ENCOURGAED TO STAY FOR FURTHER TREATMENT/STABILIZATION. DR. CESAR NOTIDIED OF PATIENT'S WISHES. PATIENT ADVISED OF THE RISKS AND BENEFITS OF LEAVING AMA. PATIENT VERBALIZED UNDERSTANDING. PATIENT ENCOURAGED TO RETURN TO THE ER IF SYMPTOMS DO NOT IMPROVE OR WORSEN. PT REFUSED WOUND TREATMENT AND DC PHOTOS.
== END 2017-08-14 11:45 | disposition left against medical advice (07) | DRG 720 ==
LOC: EDBD 23:26 → ER 23:26 → MED 08-08 08:37 → TELE 08-08 20:59 → MED 08-10 09:25
PROVIDERS: ADMIT Nurse Practitioner Acute Care; ATTEND Nurse Practitioner Acute Care
PROC: 05H533Z Insertion of Infusion Device into Right Subclavian Vein, Percutaneous Approach (ICD-10-PCS; principal; 2017-08-08)
DX: A40.0 Sepsis due to streptococcus, group A (principal); N17.0 Acute kidney failure with tubular necrosis; R65.20 Severe sepsis without septic shock; E43 Unspecified severe protein-calorie malnutrition; E87.2 Acidosis; N18.4 Chronic kidney disease, stage 4 (severe); D62 Acute posthemorrhagic anemia; D69.6 Thrombocytopenia, unspecified; E87.1 Hypo-osmolality and hyponatremia; L03.116 Cellulitis of left lower limb; A41.89 Other specified sepsis; Z66 Do not resuscitate; Z59.0 Homelessness; T86.821 Skin graft (allograft) (autograft) failure; D63.8 Anemia in other chronic diseases classified elsewhere; G89.29 Other chronic pain; M54.5 Low back pain; I12.9 Hypertensive chronic kidney disease with stage 1 through stage 4 chronic kidney disease, or unspecified chronic kidney disease; F11.10 Opioid abuse, uncomplicated; I87.2 Venous insufficiency (chronic) (peripheral); L97.819 Non-pressure chronic ulcer of other part of right lower leg with unspecified severity; E88.09 Other disorders of plasma-protein metabolism, not elsewhere classified; E83.51 Hypocalcemia; J02.9 Acute pharyngitis, unspecified; F17.210 Nicotine dependence, cigarettes, uncomplicated; Z91.19 Patient's noncompliance with other medical treatment and regimen; Z53.20 Procedure and treatment not carried out because of patient's decision for unspecified reasons; L03.115 Cellulitis of right lower limb; K92.2 Gastrointestinal hemorrhage, unspecified; I70.209 Unspecified atherosclerosis of native arteries of extremities, unspecified extremity
CPT/HCPCS: 36415; 36569; 71045-TC; 73590-TC; 76770-TC; 80048-TC; 80053-TC; 80061-TC; 80076-TC; 80202-TC; 80305; 81000-TC; 82272-TC; 82306; 82570-TC; 82728-TC; 83540-TC; 83605-TC; 83735-TC; 83880; 83935-TC; 84100-TC; 84300-TC; 84439-TC; 84443-TC; 84484-TC; 85025-TC; 85730-TC; 87040-TC; 87081-TC; 87086-TC; 87186-TC; 93307-TC; 93926-TC; A4216; A4217; A4606; A6253; A6402; A6403; J0696; J0878; J1885; J2185; J2270; J2405; J2543; J2916; J3370; J3490; J7030; J7040; J7060; Z7610